=== PATIENT | female | born 1975 | race Caucasian/White ===

== ENCOUNTER 2020-02-03 11:32 | Outpatient (CLI) | payer OTHER, SELFPAY ==
--- NOTE | ~2020-02-03 | US_ITS ---
EXAMINATION: US venous doppler [facility] DATE: 02/03/2020 12:14 INDICATION: Lower limb pain TECHNIQUE: Chacon scale images without and with compression and Doppler images of the bilateral lower e xtremity veins were obtained. COMPARISON: 12/13/2013 FINDINGS: The right common femoral vein, profunda femoral vein, femoral vein, popliteal vein, peroneal trunk, p osterior tibial veins, and greater saphenous vein are patent. The left common femoral vein, profunda femoral vein, femoral vein, popliteal vein, peroneal trunk, po sterior tibial veins, and greater saphenous vein are patent. IMPRESSION: 1. Patent bilateral lower extremity veins. No evidence of deep venous thrombosis. Reviewed, dictated and finalized at location A. IMPRESSION: 1. Patent bilateral lower extremity veins. No evidence of deep venous thrombosi s.
== END 2020-02-03 11:33 | disposition home or self-care (01) ==
LOC: ANHIMG 11:41
PROVIDERS: PCP Family Medicine; Visit Provider Nurse Practitioner Family
DX: M79.604 Pain in right leg (principal); M79.89 Other specified soft tissue disorders
CPT/HCPCS: 93970

== ENCOUNTER 2020-02-04 09:00 | Outpatient (CLI) | payer OTHER, SELFPAY ==
[2020-02-04 09:19] LABS: Hematocrit 40.1 % (37.0-47.0); Hemoglobin 12.7 g/dL (12.0-15.0); Mean Corpuscular HGB Conc 31.7 g/dl (32-36); Mean Corpuscular Hemoglobin 25.9 pg (26-34); Mean Corpuscular Volume 81.8 fl (80-100); Mean Platelet Volume 9.5 fl (7.4-10.4); Platelet Count Result 398 k/mm3 (150-375); Red Cell Distribution Width 15.8 % (11.5-14.5); White Blood Count 8.1 K/mm3 (4.5-10.0)
[2020-02-04 09:27] LABS: Anion Gap 5 mmol/L (8-16); Blood Urea Nitrogen 8 mg/dL (7-17); Calcium 8.9 mg/dL (8.4-10.2); Carbon Dioxide 27 mmol/L (22-30); Chloride 102 mmol/L (98-107); Cholesterol 190 mg/dL (0-200); Estimated Glomerular Filt Rate > 60; Glucose 104 mg/dL (65-105); HDL Direct 92 mg/dL; Potassium 3.7 mmol/L (3.4-5.0); Sodium 134 mmol/L (137-145); Triglycerides 61 mg/dL (<150)
[2020-02-04 09:38] LABS: LDL Cholesterol Direct 78 mg/dL
== END 2020-02-04 09:01 | disposition home or self-care (01) ==
LOC: ANHLAB 09:02
PROVIDERS: PCP Family Medicine; Visit Provider Nurse Practitioner Family
DX: I10 Essential (primary) hypertension (principal); Z13.29 Encounter for screening for other suspected endocrine disorder
CPT/HCPCS: 36415; 80048; 80061; 84443; 85027

== ENCOUNTER 2021-02-23 09:33 | Outpatient (CLI) | payer OTHER, SELFPAY ==
[2021-02-23 10:14] LABS: Anion Gap 5 mmol/L (8-16); Blood Urea Nitrogen 11 mg/dL (7-17); Calcium 9.2 mg/dL (8.4-10.2); Carbon Dioxide 29 mmol/L (22-30); Chloride 103 mmol/L (98-107); Cholesterol 195 mg/dL (0-200); Estimated Glomerular Filt Rate > 60; Glucose 117 mg/dL (65-110); HDL Direct 88 mg/dL; Potassium 3.7 mmol/L (3.4-5.0); Sodium 137 mmol/L (137-145); Triglycerides 80 mg/dL (<150)
[2021-02-23 10:25] LABS: LDL Cholesterol Direct 84 mg/dL
[2021-02-23 10:44] LABS: Vitamin D 25 Hydroxy 30.4 ng/mL
== END 2021-02-23 09:34 | disposition home or self-care (01) ==
LOC: ANHLAB 09:37
PROVIDERS: PCP Family Medicine; Visit Provider Nurse Practitioner Family
DX: R53.83 Other fatigue (principal); E55.9 Vitamin D deficiency, unspecified; I10 Essential (primary) hypertension
CPT/HCPCS: 36415; 80048; 80061; 82306; 84443

== ENCOUNTER 2022-05-24 00:52 | Day surgery (SDC) | payer OTHER, SELFPAY ==
[2022-05-17 11:46] VITALS: BMI 24.3
--- NOTE | 2022-05-23 13:01 | PM.HPGS ---
History of Present Illness History of Present Illness Consent: Risks, benefits, and alternatives have been discussed and questions answered. Patient agrees to proceed with procedure. Chief complaint: neoplasm screening Narrative: Kacie Norton is a 46 year old female Referred for colon cancer screening. her father had colon cancer. Review of Systems Review of Systems: All systems reviewed & are unremarkable except as noted in HPI and below PMFSH Past Medical History Medical History Bipolar disorder Hypertension Left leg pain Right knee pain Surgical History Surgical History History of back surgery 2012,2014 History of plastic surgery S/P gastric surgery S/P knee surgery Family History Family History Father Carcinoma of colon Grandparent Family history of malignant neoplasm of breast Diabetes mellitus Mother Heart disease Sibling No problems noted. 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 [employer] Gender identity (if verbalized by the patient): Female Sexual Orientation (if Verbalized by the Patient): Lesbian, Ivy, or Homosexual Spiritual care concerns: No Agree to blood products: Yes Meds Home Medications and Allergies Home Medications Medication Instructions Recorded Confirmed Type lisinopril 10 mg tablet 10 mg PO DAILY #90 tabs 02/20/22 05/17/22 Rx semaglutide 0.25 mg or 0.5 mg (2 0.5 mg (0.4 mL) subcut WEEKLY #1.5 03/29/22 05/17/22 Rx mg/1.5 mL) subcutaneous pen mL injector (Ozempic) ubrogepant 100 mg tablet (Ubrelvy) 100 mg PO ONCE PRN Migraine 05/17/22 05/17/22 History Headache Allergies Allergy/AdvReac Type Severity Reaction Status Date / Time No Known Allergies Allergy Unknown Verified 05/24/22 08:25 Exam Resp: Auscultation: clear to auscultation bilaterally Cardio: Rate: regular rate Rhythm: regular rhythm GI: GI Palp: Yes Soft to palpation and No Tenderness to palpation present (GI) Assessment and Plan Assessment and plan (1) Screening for colon cancer: Code(s): Z12.11 - Encounter for screening for malignant neoplasm of colon Status: Acute Assessment and Plan: Colonoscopy with possible biopsy or polypectomy or cautery or injection of substances. Plan Colonoscopy with possible biopsy or polypectomy or cautery or injection of substances.
[2022-05-24 08:27] VITALS: BP 126/83; PULSE 61; RESP 18; TEMP 36.5; O2SAT 96
[2022-05-24] MEDS: LACTATED RINGERS 1,000 ML 150 ML IV CONT (08:40)
--- NOTE | 2022-05-24 09:10 | WPDANESEPPF ---
Anes - Initial Pre Proc Eval Procedure: Operation Date: 05/24/22 09:45 Proposed Procedures p Screening Colonoscopy - Chito Salgado MD Date/Time: 05/24/22 09:10 Surgeon: Chito Salgado MD Pre Op Diagnosis: neoplasm screening Patient Data Age: 46 Gender: F Height: 1.68 m Weight: 69.5 kg Last Vital Signs Temp 36.5 C 05/24/22 08:27 Pulse 61 05/24/22 08:27 Resp 18 05/24/22 08:27 BP 126/83 05/24/22 08:27 Pulse Ox 96 05/24/22 08:27 O2 Del Method Room Air 05/24/22 08:27 Allergies Allergy/AdvReac Type Severity Reaction Status Date / Time No Known Allergies Allergy Unknown Verified 05/24/22 08:25 Home Medications Medication Instructions Recorded Confirmed Type lisinopril 10 mg tablet 10 mg PO DAILY #90 tabs 02/20/22 05/17/22 Rx semaglutide 0.25 mg or 0.5 mg (2 0.5 mg (0.4 mL) subcut WEEKLY #1.5 03/29/22 05/17/22 Rx mg/1.5 mL) subcutaneous pen mL injector (Ozempic) ubrogepant 100 mg tablet (Ubrelvy) 100 mg PO ONCE PRN Migraine 05/17/22 05/17/22 History Headache Patient hx anesthesia problems: none Family hx anesthesia problems: none Results Review: All pre-operative results and documents have been reviewed as part of the pre-operative evaluation. [facility] Past Medical History Medical History Bipolar disorder Hypertension Left leg pain Right knee pain Surgical History Surgical History History of back surgery 2012,2014 History of plastic surgery S/P gastric surgery S/P knee surgery Family History Family History Father Carcinoma of colon Grandparent Family history of malignant neoplasm of breast Diabetes mellitus Mother Heart disease Sibling No problems noted. 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 [employer] Gender identity (if verbalized by the patient): Female Sexual Orientation (if Verbalized by the Patient): Lesbian, Ivy, or Homosexual Spiritual care concerns: No Agree to blood products: Yes Anes - Eval Final PreProcedure Day of Procedure 05/24/22 09:10 Patient weight: normal Heart: regular rate and rhythm Lungs: clear to auscultation Airway: Mallampati scale class II Neurological: alert and oriented Last oral intake: >/= 8 hours ASA classification: III Emergent: no Anesthetic plan: proceed Anesthesia type and monitoring: general GIVS and standard monitoring Results Review: All pre-operative results and documents have been reviewed as part of the pre-operative evaluation. Informed Consent: The patient's anesthetic plan and its attendant risks and benefits were discussed with the patient/family/POA. Questions were solicited and answers provided to the satisfaction of the patient/family/POA.
[2022-05-24 10:22] VITALS: BP 110/71; PULSE 70; RESP 21; O2SAT 100
[2022-05-24 10:32] VITALS: BP 116/72; PULSE 69; RESP 21; O2SAT 100
[2022-05-24 10:42] VITALS: BP 134/84; PULSE 58; RESP 18; O2SAT 100
== END 2022-05-24 10:49 | disposition home or self-care (01) ==
PROVIDERS: PCP Family Medicine; Visit Provider Internal Medicine Gastroenterology
PROC: 0DJD8ZZ Inspection of Lower Intestinal Tract, Via Natural or Artificial Opening Endoscopic (ICD-10-PCS; CPT 45378; principal; 2022-05-24 09:45)
DX: Z12.11 Encounter for screening for malignant neoplasm of colon (principal); Z80.0 Family history of malignant neoplasm of digestive organs; I10 Essential (primary) hypertension; F31.9 Bipolar disorder, unspecified; Z87.891 Personal history of nicotine dependence
CPT/HCPCS: 45378; J2001; J2704; J7120